=== PATIENT | male | born 1975 | race Caucasian/White ===

== ENCOUNTER 2016-12-19 13:47 | Emergency (ER) | payer SELFPAY ==
[~2016-12-19] VITALS: Ht 170.2 cm; Wt 63.5 kg
[~2016-12-19 13:47] MED LIST: ALPR2TAB2 PO; LOSA50TA6 PO; OXYC-250 PO; PREG50CA PO
[2016-12-19 14:03] VITALS: BP 169/99
--- NOTE | 2016-12-19 14:32 | PHYS DOC ---
Past Medical History Past Medical History: Anxiety, Hypertension, Other Additional Past Medical Histor: crohns, chronic left leg pain Past Surgical History: Other Additional Past Surgical Histo: testicular tortion Alcohol Use: Occasionally Drug Use: None Adult General Chief Complaint Chief Complaint: LOWER EXT PAIN [facility] HPI Patient is a 41 year old male who presents complaining of left hip deformity for a couple years patient states a couple years ago he fell down from standing position. He states he was seen in the ED they did x-rays and they told him he could have some nerve damage. He states he followed up with an orthopedic doctor who told him everything was okay. He states he was seen at [facility] one week ago, he states they did MRI of his hip and he was told everything is okay. Patient states he believes his hip is deformed despite his negative MRI. Patient states we should find what's wrong with his hip because is it deformed and "locked up". I offered patient x-rays, patient states he has already had a MRI right which is negative. He is up walking demonstrating his hip deformity which is not visible in the ED. Patient has repeatedly story over over about his hip deformity which is not visible. He is using his hip when he is walking and striking everything with no difficulty. Patient's also complaining of a rash in the inner thigh. He states his had the rash for couple days. Denies any drainage urgency frequency or dysuria. Review of Systems Review of Systems Constitutional: Denies fever or chills [] Eyes: Denies change in visual acuity, redness, or eye pain [] HENT: Denies nasal congestion or sore throat [] Respiratory: Denies cough or shortness of breath [] Cardiovascular: No additional information not addressed in HPI [] GI: Denies abdominal pain, nausea, vomiting, bloody stools or diarrhea [] : Denies dysuria or hematuria [] Musculoskeletal: Left hip deformity Integument: Denies rash or skin lesions [] Neurologic: Denies headache, focal weakness or sensory changes [] Endocrine: Denies polyuria or polydipsia [] Allergies Allergies Allergies Coded Allergies Type Severity Reaction Last Updated Verified No Known Drug Allergies 12/03/15 No Physical Exam Physical Exam Constitutional: Well developed, well nourished, no acute distress, non-toxic appearance. [] HENT: Normocephalic, atraumatic, bilateral external ears normal, oropharynx moist, no oral exudates, nose normal. [] Eyes: PERRLA, EOMI, conjunctiva normal, no discharge. [] Neck: Normal range of motion, no tenderness, supple, no stridor. [] Cardiovascular:Heart rate regular rhythm, no murmur [] Lungs & Thorax: Bilateral breath sounds clear to auscultation [] Abdomen: Bowel sounds normal, soft, no tenderness, no masses, no pulsatile masses. [] Skin: Left inner thigh with small amount of jock itch rash Back: No tenderness, no CVA tenderness. [] Extremities: Left hip with no obvious deformity. Full range of motion to the left hip. Adequate internal rotation and external rotation of the left hip. +2 left pedal pulse. Cap refill less than 2 seconds left lower extremity. Neurologic: Alert and oriented X 3, normal motor function, normal sensory function, no focal deficits noted. [] Psychologic: Affect normal, judgement normal, mood normal. [] Current Patient Data Vital Signs Vital Signs Date Time Temp Pulse Resp B/P (MAP) Pulse Ox O2 Delivery O2 Flow Rate FiO2 12/19/16 14:03 98.9 104 18 169/99 (122) 99 Room Air 98.9 EKG EKG [] Radiology/Procedures Radiology/Procedures [] Course & Med Decision Making Course & Med Decision Making Pertinent Labs and Imaging studies reviewed. (See chart for details) Patient is in the ED with complaining of chronic left hip deformity which is not present on physical exam. Patient has been an incredible amount of time to straighten to the nose and I what he believes his left hip deformity. He states he is already had x-rays done of the left hip as well as the right done at [facility] couple days ago which were negative. I recommended he follows up with Dr. Oreilly orthopedic doctor who is information services consultant this week. Patient states he is already seen Dr. Oreilly and he was told his hip is in place and there is nothing that can be done. I recommended he picks anybody from the list of orthopedic doctors or he can follow up with another orthopedic doctor if he prefers 2. Patient has spent an incredible amount of time with the nurse and I trying to explain to us his chronic left hip deformity which is not visible on physical exam. Orthopedic f/u recommended He also had a jock itch rash on the left scrotal area. He was discharged with clotrimazole cream. Dragon Disclaimer Dragon Disclaimer This electronic medical record was generated, in whole or in part, using a voice recognition dictation system. Departure Departure Impression: Primary Impression: Jock itch Additional Impression: Left thigh pain Disposition: HOME, SELF-CARE Condition: STABLE Referrals: CRIS GASTELUM MD (PCP) COLEMAN OREILLY MD Call Dr. Oreilly and set up a follow up appointment as soon as possible Patient Instructions: Hip Pain, Jock Itch, [id number] Additional Instructions: You were seen for concerns about to your heat in the lower extremities. He stated you have had imaging done. We recommend you follow-up with the provided orthopedic doctor or your own orthopedic doctor as soon as possible. Call their office today or Thursday and get a follow-up appointment. Scripts Clotrimazole (CLOTRIMAZOLE) 15 Gm Cream..g. 1 CHAIM TP TID, #45 GM Prov: AMITA HOFFMAN APRN 12/19/16 Problem Qualifiers AMITA HOFFMAN APRN December 19, 2016 14:32
[2016-12-19] MEDS ORDERED: CLOT15CR4 TP (14:37)
== END 2016-12-19 14:49 | disposition home or self-care (01) ==
LOC: ER 13:47
DX: M79.652 Pain in left thigh (principal); B35.6 Tinea cruris; F41.9 Anxiety disorder, unspecified; I10 Essential (primary) hypertension; K50.90 Crohn's disease, unspecified, without complications; G89.29 Other chronic pain
CPT/HCPCS: 99283

== ENCOUNTER 2016-12-20 12:34 | Inpatient (IN) | payer SELFPAY ==
[~2016-12-20] VITALS: Ht 172.7 cm; Wt 63.5 kg
[~2016-12-20 12:34] MED LIST changes: +CLOT15CR4 TP
[2016-12-20] MEDS ORDERED: IV NORMAL SALINE 1000ML BAG 1,000 ML IV SCH (13:15)
--- NOTE | 2016-12-20 13:15 | PHYS DOC ---
Past Medical History Past Medical History: Anxiety, Hypertension, Other Additional Past Medical Histor: crohns, chronic left leg pain Past Surgical History: Other Additional Past Surgical Histo: testicular tortion Alcohol Use: Occasionally Drug Use: None Adult General Chief Complaint Chief Complaint: LOWER EXT PAIN HPI HPI Patient is a 41 year old male who presents with complaint of bilateral hip pain. Patient states that he has been having trouble over the past year with hip pain after suffering an injury approximately one year ago. Patient states that he fell, causing nerve damage in his left extremity. Patient has been trying to rehabilitation his injury over the past year. Patient states while doing back hamstring kicks 2 weeks ago he felt a pop in both his proximal lower extremity and hip and states since then has been having difficulty with ambulation and has been unsteady on his feet. Patient rates his pain currently is 10 out of 10. Patient states that he is having difficulty performing tasks of daily living at home because of his current affliction. Patient follows a Dr. Gastelum for primary care. Patient denies any other associated symptoms. Review of Systems Review of Systems Constitutional: Denies fever or chills [] Eyes: Denies change in visual acuity, redness, or eye pain [] HENT: Denies nasal congestion or sore throat [] Respiratory: Denies cough or shortness of breath [] Cardiovascular: Denies chest pain or edema [] GI: Denies abdominal pain, nausea, vomiting, bloody stools or diarrhea [] : Denies dysuria or hematuria [] Musculoskeletal: Bilateral hip pain, difficulty with ambulation [] Integument: Denies rash or skin lesions [] Neurologic: Denies headache, focal weakness or sensory changes [] Current Medications Current Medications Current Medications Medications (Trade) Dose Ordered Sig/Dnenys Start Time Stop Time Status Last Admin Dose Admin Diazepam (Valium) 5 mg 1X ONCE 12/20/16 13:15 12/20/16 13:16 DC 12/20/16 14:02 5 MG Sodium Chloride 1,000 ml @ 1,000 mls/hr Q1H 12/20/16 13:15 12/20/16 14:14 DC 12/20/16 14:02 1,000 MLS/HR Allergies Allergies Allergies Coded Allergies Type Severity Reaction Last Updated Verified No Known Drug Allergies 12/03/15 No Physical Exam Physical Exam Constitutional: Alert, afebrile, appears in moderate discomfort. [] HENT: Normocephalic, atraumatic, bilateral external ears normal, oropharynx moist, no oral exudates, nose normal. [] Eyes: PERRLA, EOMI, conjunctiva normal, no discharge. [] Neck: Normal range of motion, no tenderness, supple, no stridor. [] Cardiovascular: Tachycardia, regular rhythm, no murmur [] Lungs & Thorax: Bilateral breath sounds clear to auscultation [] Abdomen: Bowel sounds normal, soft, no tenderness, no masses, no pulsatile masses. [] Skin: Warm, dry, no erythema, no rash. [] Back: No tenderness, no CVA tenderness. [] Extremities: No obvious deformities, proximal lower extremity muscle spasms bilaterally, mildly decreased range of motion to flexion at the hips bilaterally , mild greater trochanteric tenderness bilaterally, pulses 2+ distal to affected areas. [] Neurologic: Alert and oriented X 3, normal motor function, normal sensory function, no focal deficits noted. [] Current Patient Data Vital Signs Vital Signs Date Time Temp Pulse Resp B/P (MAP) Pulse Ox O2 Delivery O2 Flow Rate FiO2 12/20/16 13:30 88 10 138/83 (101) 96 12/20/16 12:45 98.8 Room Air 98.8 Lab Values Laboratory Tests Test 12/20/16 13:35 White Blood Count 14.9 x10^3/uL (4.0-11.0) H Red Blood Count 4.64 x10^6/uL (4.30-5.70) Hemoglobin 15.6 g/dL (13.0-17.5) Hematocrit 45.6 % (39.0-53.0) Mean Corpuscular Volume 98 fL (79-100) Mean Corpuscular Hemoglobin 34 pg (25-35) Mean Corpuscular Hemoglobin Concent 34 g/dL (31-37) Red Cell Distribution Width 13.3 % (11.5-14.5) Platelet Count 358 x10^3/uL (140-400) Neutrophils (%) (Auto) 71 % (31-73) Lymphocytes (%) (Auto) 19 % (24-48) L Monocytes (%) (Auto) 7 % (0-9) Eosinophils (%) (Auto) 3 % (0-3) Basophils (%) (Auto) 1 % (0-3) Neutrophils # (Auto) 10.5 x10^3uL (1.8-7.7) H Lymphocytes # (Auto) 2.8 x10^3/uL (1.0-4.8) Monocytes # (Auto) 1.1 x10^3/uL (0.0-1.1) Eosinophils # (Auto) 0.4 x10^3/uL (0.0-0.7) Basophils # (Auto) 0.1 x10^3/uL (0.0-0.2) Sodium Level 136 mmol/L (136-145) Potassium Level 4.1 mmol/L (3.5-5.1) Chloride Level 100 mmol/L (98-107) Carbon Dioxide Level 30 mmol/L (21-32) Anion Gap 6 (6-14) Blood Urea Nitrogen 17 mg/dL (8-26) Creatinine 1.0 mg/dL (0.7-1.3) Estimated GFR (Cockcroft-Gault) 82.8 BUN/Creatinine Ratio 17 (6-20) Glucose Level 133 mg/dL (70-99) H Calcium Level 9.0 mg/dL (8.5-10.1) Magnesium Level 1.9 mg/dL (1.8-2.4) Total Bilirubin 0.2 mg/dL (0.2-1.0) Aspartate Amino Transferase (AST) 30 U/L (15-37) Alanine Aminotransferase (ALT) 35 U/L (16-63) Alkaline Phosphatase 69 U/L (46-116) Total Protein 7.8 g/dL (6.4-8.2) Albumin 4.0 g/dL (3.4-5.0) Albumin/Globulin Ratio 1.1 (1.0-1.7) Laboratory Tests 12/20/16 13:35 Laboratory Tests 12/20/16 13:35 EKG EKG Not performed Radiology/Procedures Radiology/Procedures [facility] [address] [facility] [place], [place] [id number] IMAGING REPORT Signed PATIENT: INESSA SUTTON ACCOUNT: [id number] : 1975 LOCATION: ER AGE: 41 SEX: M EXAM STATUS: REG ER ORD. PHYSICIAN: RADHA MARROQUIN MD REASON: bilateral hip pain PROCEDURE: HIP BILATERAL WITH PELVIS Indication bilateral hip pain. An AP view of the pelvis was obtained as well as targeted AP and frog leg views of both hips. No bony abnormality is seen DICTATED and SIGNED BY: ERYN WATERMAN MD DATE: 12/20/16 1209 CC: RADHA MARROQUIN MD; CRIS GASTELUM MD ~ [] Course & Med Decision Making Course & Med Decision Making Pertinent Labs and Imaging studies reviewed. (See chart for details) Patient was given IV Valium in the emergency department as a muscle relaxant medication. Patient experienced mild improvement in symptoms but continues to voice concern of difficulty with ambulation and movement of his lower extremities. Due to reported functional impairment, I contacted Dr. Lopez. She stated that she had been in contact with the patient prior to his emergency department stay. She confirmed that the patient has had multiple visits prior and has not had a formal diagnosis for his ailments. She agreed to admit the patient to the hospital for further monitoring and treatment. The patient will be admitted under Dr. Lopez in consults will be placed to Dr. Vidales and Dr. Oreilly to follow with patient in hospital. Dragon Disclaimer Dragon Disclaimer This electronic medical record was generated, in whole or in part, using a voice recognition dictation system. Departure Departure Impression: Primary Impression: Left hip pain Additional Impression: Unable to ambulate Disposition: ADMITTED INPATIENT Admitting Physician: Mayte Lopez Condition: STABLE Referrals: CRIS GASTELUM MD (PCP) Problem Qualifiers RADHA MARROQUIN MD December 20, 2016 13:15
[2016-12-20 13:51] LABS: BASO # 0.1 x10^3/uL (0.0-0.2); BASO % 1 % (0-3); EOS % 3 % (0-3); HEMATOCRIT 45.6 % (39.0-53.0); HEMOGLOBIN 15.6 g/dL (13.0-17.5); LYMPH # 2.8 x10^3/uL (1.0-4.8); LYMPH % 19 % (24-48); MEAN CORPUSCULAR HEMOGLOBIN 34 pg (25-35); MEAN CORPUSCULAR HGB CONC 34 g/dL (31-37); MEAN CORPUSCULAR VOLUME 98 fL (79-100); MONO % 7 % (0-9); NEUT % 71 % (31-73); PLATELET COUNT 358 x10^3/uL (140-400); RED BLOOD COUNT 4.64 x10^6/uL (4.30-5.70); RED CELL DISTRIBUTION WIDTH 13.3 % (11.5-14.5); WHITE BLOOD COUNT 14.9 x10^3/uL (4.0-11.0)
[2016-12-20 13:54] LABS: GFR 82.8; POTASSIUM 4.1 mmol/L (3.5-5.1)
[2016-12-20 13:59] LABS: ALBUMIN/GLOBULIN RATIO 1.1 (1.0-1.7); MAGNESIUM 1.9 mg/dL (1.8-2.4); TOTAL BILIRUBIN 0.2 mg/dL (0.2-1.0); TOTAL PROTEIN 7.8 g/dL (6.4-8.2)
--- NOTE | 2016-12-20 14:12 | RAD ---
Indication bilateral hip pain. An AP view of the pelvis was obtained as well as targeted AP and frog leg views of both hips. No bony abnormality is seen
[2016-12-20] MEDS: IV NORMAL SALINE 1000ML BAG 1,000 ML IV SCH (15:56)
[2016-12-20 16:00] VITALS: BP 134/92
[2016-12-20] MEDS ORDERED: ACETAMINOPHEN 325 MG TABLET. PO PRN (16:00)
[2016-12-20] MEDS ORDERED: ONDANSETRON PF 4 MG/2 ML VIAL. IV PRN (16:00)
[2016-12-20] MEDS: fentaNYL PF VIAL 100 MCG/2 ML VIAL IV PRN ×2 (16:13→22:50)
[2016-12-20 19:00] VITALS: BP 127/86
[2016-12-20 23:16] VITALS: BP 128/67
[2016-12-21] MEDS: IV NORMAL SALINE 1000ML BAG 1,000 ML IV SCH (01:56)
[2016-12-21 03:25] VITALS: BP 107/66
--- NOTE | 2016-12-21 05:45 | ACF ---
Admission Forms Criteria MUSCULOSKELETAL DISEASE GRG Clinical Indications for Admission to Inpatient Care (Place 'X' for any and all applicable criteria): Hospital admission is needed for appropriate care of the patient because of 1 or more of the following: [X]I. Fracture, dislocation, or other musculoskeletal injury requiring inpatient care(medical) as indicated by 1 or more of the following(4)(5)(6)(7) [ ]a) Vertebral fracture requiring observation for instability or neurologic compromise (8) [ ]b) Compartment syndrome (proven or cannot be ruled out during observation level of care) (9) [ ]c) Limb-threatening injury [ ]d) Major injury requiring inpatient stabilization such as traction initiation or external fixation before internal fixation or closure of complex or open fracture [ ]e) Major injury requiring inpatient treatment after emergency or observation level care (as appropriate) [X]f) Severe pain requiring acute inpatient management [ ]g) Injury with suspicion of abuse or neglect (eg., child, dependent elderly) [ ]II. Newly diagnosed or suspected bone, joint, or orthopedic device infection (e.g., osteomyelitis, septic arthritis) needing 1 or more of the following(1)(2)(3) [ ]a) IV antibiotics that cannot be initiated in other than inpatient setting (e.g., patient too unstable or home infusion not available) [ ]b) Device removal or replacement [ ]c) Bone or soft tissue debridement [ ]d) Joint drainage (drain placement or repetitive aspirations) [ ]III. Severe rheumatologic disease (e.g., systemic lupus erythematosus, rheumatoid arthritis) with complications or comorbidities (Also use Optimal Recovery Care Criteria or General Recovery Criteria as appropriate on the basis of predominant condition), including 1 or more of the following( 10)(11)(12)(13) [ ]a) Severe infection (e.g., HOUSEHOLD PERSONAL ASSISTANT infection, sepsis) (14) [ ]b) Respiratory complications, including 1 or more of the following : [ ]i) Pleural effusion with respiratory compromise [ ]ii) Pulmonary hypertension with congestive failure [ ]iii) Respiratory failure [ ]iv) Pulmonary hemorrhage (15) [ ]c) Hematologic disease, including 1 or more of the following: [ ]i) Coagulopathy with bleeding [ ]ii) Thrombosis with hypercoagulable state [ ]iii) Thrombotic thrombocytopenic purpura [ ]d) Cerebritis with seizures, psychosis, or other severe abnormalities [ ]e) Vertebral destruction with monitoring needed for cervical myelopathy& possible respiratory compromise [ ]f) Exacerbation that requires inpatient treatment (e.g., intravenous immunosuppression) (16) [ ]g) Acute renal failure [ ]h) Cerebritis with seizures, psychosis, Altered mental status, or other neurologic abnormalities [ ]i) Pericardial effusion with tamponade [ ]j) Vertebral destruction, with monitoring needed for cervical myelopathy and possible respiratory compromise [ ]IV. Severe vasculitis with complications or comorbidities (Also use Optimal Recovery Care Criteria General Recovery Criteria as appropriate on the basis of predominant condition), including 1 or more of the following(11)(12)(17)(18)(19)(20) [ ]a) Exacerbation that requires inpatient treatment (e.g., intravenous immunosuppression) (19)(21) [ ]b) Pulmonary hemorrhage (15) [ ]c) HOUSEHOLD PERSONAL ASSISTANT vasculitis with seizures, psychosis, Altered mental status that is severe or persistent, or other severe abnormalities (22) [ ]d) Cerebral infarction [ ]e) Gastrointestinal ischemia [ ]f) Gangrene or threatened amputation [ ]g) Renal failure (16) [ ]h) Other significant complications of vasculitis ( eg., tissue or organ ischemia, organ dysfunction ) [ ]V. Severe myopathy as indicated by 1 or more of the following (28)(29) [ ]a) New onset of airway compromise or inability to swallow [ ]b) Respiratory deterioration with observation needed for impending respiratory failure [ ]c) Exacerbation that requires inpatient treatment (e.g., intravenous immunosuppression) [ ]. Severe crystal gout (arthropathy) indicated by 1 or more of the following (23)(24) [ ]a) Severe pain requiring acute inpatient management [ ]b) Exacerbation that requires inpatient treatment (e.g., intravenous treatment) [ ]VII.Rhabdomyolysis and 1 or more of the following (25)(26)(27) [ ]a) Acute renal failure [ ]b) Need for intravenous hydration after emergency or observation level care (as appropriate) [ ]c) Inability to maintain oral hydration [ ]d) Change in mental status [ ]e) Electrolyte abnormality that remains after emergency or observation level care (as appropriate) [ ]VIII Post amputation complication, as indicated by ANY ONE of the following [ ]a) Infection [ ]b) Dehiscence [ ]c) Myodesis failure [ ]IX. Severe pain requiring acute inpatient management due to musculoskeletal condition [ ]X. Musculoskeletal Disease and ALL of the following: [ ]a) Symptom or finding for which emergency and observation care have failed or are not considered appropriate (Use General Criteria: Observation Care as appropriate) [ ]b) Presence of ANY ONE of the following [ ]i) A General Admission Criteria [ ]ii) A Pediatric General Admission Criteria The original [facility] [employer] content created by [facility] [employer] has been revised. The portions of the content which have been revised are identified through the use of italic text or in bold, and [facility] has neither reviewed nor approved the modified material. All other unmodified content is copyright [facility]. Please see references footnoted in the original [facility] edition 2016 Admission Criteria Met?: Yes JOELLEN BOJORQUEZ December 21, 2016 05:45
[2016-12-21 06:11] LABS: BASO # 0.1 x10^3/uL (0.0-0.2); BASO % 2 % (0-3); EOS % 7 % (0-3); HEMATOCRIT 45.6 % (39.0-53.0); HEMOGLOBIN 15.1 g/dL (13.0-17.5); LYMPH # 4.3 x10^3/uL (1.0-4.8); LYMPH % 46 % (24-48); MEAN CORPUSCULAR HEMOGLOBIN 33 pg (25-35); MEAN CORPUSCULAR HGB CONC 33 g/dL (31-37); MEAN CORPUSCULAR VOLUME 101 fL (79-100); MONO % 11 % (0-9); NEUT % 35 % (31-73); PLATELET COUNT 313 x10^3/uL (140-400); RED BLOOD COUNT 4.54 x10^6/uL (4.30-5.70); RED CELL DISTRIBUTION WIDTH 13.4 % (11.5-14.5); WHITE BLOOD COUNT 9.5 x10^3/uL (4.0-11.0)
[2016-12-21 06:24] LABS: CALCIUM 8.8 mg/dL (8.5-10.1); CREATININE 0.9 mg/dL (0.7-1.3); GFR 93.5; POTASSIUM 4.5 mmol/L (3.5-5.1)
[2016-12-21 07:00] VITALS: BP 140/95
[2016-12-21] MEDS: fentaNYL PF VIAL 100 MCG/2 ML VIAL IV PRN (10:45)
[2016-12-21 10:51] VITALS: BP 133/79
--- NOTE | 2016-12-21 12:10 | PDOC ---
OBJECTIVE Vital Signs Vital Signs Date Time Temp Pulse Resp B/P (MAP) Pulse Ox O2 Delivery O2 Flow Rate FiO2 12/21/16 10:51 97.9 75 20 133/79 (97) 97 Room Air 97.9 12/21/16 10:45 18 Room Air 12/21/16 07:50 Room Air 12/21/16 07:00 97.7 71 20 140/95 (110) 95 Room Air 97.7 12/21/16 03:25 97.8 49 18 107/66 (80) 99 Room Air 97.8 12/20/16 23:20 20 97 Room Air 12/20/16 23:16 97.7 70 18 128/67 (87) 97 Room Air 97.7 12/20/16 20:00 Room Air 12/20/16 19:00 97.7 67 18 127/86 (100) 98 Room Air 97.7 12/20/16 18:00 Room Air 12/20/16 16:13 16 Room Air 12/20/16 16:00 98.2 73 20 134/92 (106) 97 Room Air 98.2 12/20/16 16:00 98.2 73 20 134/92 (106) 97 Room Air 98.2 12/20/16 15:30 66 10 122/77 (92) 96 12/20/16 14:30 70 11 124/81 (95) 97 12/20/16 13:30 88 10 138/83 (101) 96 12/20/16 12:45 98.8 114 21 162/97 (118) 97 Room Air 98.8 I & O Intake and Output 12/21/16 07:00 Intake Total 0 ml Output Total 600 ml Balance -600 ml Intake Oral 0 ml Output Urine Total 600 ml ASSESSMENT/PLAN Assessment/Plan [id number] H&P dictated Problems: COMMENT Lab Laboratory Tests Test 12/20/16 13:35 12/21/16 05:45 White Blood Count 14.9 x10^3/uL (4.0-11.0) 9.5 x10^3/uL (4.0-11.0) Red Blood Count 4.64 x10^6/uL (4.30-5.70) 4.54 x10^6/uL (4.30-5.70) Hemoglobin 15.6 g/dL (13.0-17.5) 15.1 g/dL (13.0-17.5) Hematocrit 45.6 % (39.0-53.0) 45.6 % (39.0-53.0) Mean Corpuscular Volume 98 fL (79-100) 101 fL (79-100) Mean Corpuscular Hemoglobin 34 pg (25-35) 33 pg (25-35) Mean Corpuscular Hemoglobin Concent 34 g/dL (31-37) 33 g/dL (31-37) Red Cell Distribution Width 13.3 % (11.5-14.5) 13.4 % (11.5-14.5) Platelet Count 358 x10^3/uL (140-400) 313 x10^3/uL (140-400) Neutrophils (%) (Auto) 71 % (31-73) 35 % (31-73) Lymphocytes (%) (Auto) 19 % (24-48) 46 % (24-48) Monocytes (%) (Auto) 7 % (0-9) 11 % (0-9) Eosinophils (%) (Auto) 3 % (0-3) 7 % (0-3) Basophils (%) (Auto) 1 % (0-3) 2 % (0-3) Neutrophils # (Auto) 10.5 x10^3uL (1.8-7.7) 3.3 x10^3uL (1.8-7.7) Lymphocytes # (Auto) 2.8 x10^3/uL (1.0-4.8) 4.3 x10^3/uL (1.0-4.8) Monocytes # (Auto) 1.1 x10^3/uL (0.0-1.1) 1.0 x10^3/uL (0.0-1.1) Eosinophils # (Auto) 0.4 x10^3/uL (0.0-0.7) 0.7 x10^3/uL (0.0-0.7) Basophils # (Auto) 0.1 x10^3/uL (0.0-0.2) 0.1 x10^3/uL (0.0-0.2) Sodium Level 136 mmol/L (136-145) 138 mmol/L (136-145) Potassium Level 4.1 mmol/L (3.5-5.1) 4.5 mmol/L (3.5-5.1) Chloride Level 100 mmol/L (98-107) 103 mmol/L (98-107) Carbon Dioxide Level 30 mmol/L (21-32) 31 mmol/L (21-32) Anion Gap 6 (6-14) 4 (6-14) Blood Urea Nitrogen 17 mg/dL (8-26) 15 mg/dL (8-26) Creatinine 1.0 mg/dL (0.7-1.3) 0.9 mg/dL (0.7-1.3) Estimated GFR (Cockcroft-Gault) 82.8 93.5 BUN/Creatinine Ratio 17 (6-20) Glucose Level 133 mg/dL (70-99) 94 mg/dL (70-99) Calcium Level 9.0 mg/dL (8.5-10.1) 8.8 mg/dL (8.5-10.1) Magnesium Level 1.9 mg/dL (1.8-2.4) Total Bilirubin 0.2 mg/dL (0.2-1.0) Aspartate Amino Transf (AST/SGOT) 30 U/L (15-37) Alanine Aminotransferase (ALT/SGPT) 35 U/L (16-63) Alkaline Phosphatase 69 U/L (46-116) Total Protein 7.8 g/dL (6.4-8.2) Albumin 4.0 g/dL (3.4-5.0) Albumin/Globulin Ratio 1.1 (1.0-1.7) DELVIS SALEH MD December 21, 2016 12:10
--- NOTE | 2016-12-21 13:32 | HP ---
ADMIT DATE: 12/20/2016 LOCATION: Room 440. HISTORY OF PRESENT ILLNESS: The patient is a 41-year-old gentleman who presented to the Emergency Room complaining of pain, discomfort, and feeling of loss of control over bilateral hips. He had problem with a left hip trauma a year ago with diagnosis, at that time, of left lumbosacral plexopathy. He was advised to do physical therapy and he has been doing that over the last year. He stated that he has improved and almost felt back to normal until about a week ago he was exercising and doing back hamstring kicks, he had a big cramp and felt a pop in both his proximal lower extremity and hip. Since then, he has been having difficulty ambulating. He feels that he is losing control on both his lower extremities and feels that his femoral heads are not connected to his hips. He is having difficulty supporting himself and standing without using a cane. He does have very unusual symptom and presentation, and he is very dramatic about what he is feeling. He does seem to be very anxious and had sweaty palms when he was describing this. He also complains of pain. He states that over the last 2 weeks, since he had this injury, he has sought medical attention at several facilities including [facility] where he had MRI of the hip, which was reported to be negative, results of which is not available to me at this time. He also was seen in the Emergency Room earlier at [place] and was sent home. He is insisting that he is not able to walk and has severe weakness in his lower extremities and feel that he will be paralyzed. He was admitted for further evaluation and treatment and consultation with Neurology, Physical Therapy as well as Orthopedic. PAST MEDICAL HISTORY: Significant for hypertension, history of testicular torsion, history of back pain, anxiety, depression, open reduction internal fixation of the right leg and injury to his right leg with a forklift running over his right leg, injury last year in December 2015, causing left hip plexopathy. REVIEW OF SYSTEMS: CONSTITUTIONAL: Denies fever or chills. EYES: Denies visual changes. HEENT: Denies nasal congestion or sore throat. RESPIRATORY: Denies cough. CARDIOVASCULAR: Denies chest pain. GASTROINTESTINAL: Denies nausea, vomiting, or abdominal pain. GENITOURINARY: Denies dysuria. MUSCULOSKELETAL: Bilateral hip pain, difficulty with ambulation as mentioned above. PHYSICAL EXAMINATION: GENERAL: He is alert. He is a very anxious appearing. He is very dramatic about describing what is going on with him. He is very sweaty in his palms. HEENT: Normocephalic, atraumatic. Eyes: Pupils equal, round, reactive to light and accommodation. NECK: Supple, with no JVD or bruit or cervical adenopathy. HEART: Mildly tachycardic, did not appreciate a murmur. LUNGS: Fairly clear to auscultation. ABDOMEN: Soft, nontender, no organomegaly, no masses, no bruits, no ascites. SKIN: Warm and dry, but he does have sweaty palms. He did not have rash. BACK: With no CVA tenderness. EXTREMITIES: No edema, clubbing, or cyanosis, but he does have spasm in his muscles, mildly decreased range of motion and flexion in the hips bilaterally. He does have mild prominence on his muscles in the left lower extremity. He does have +2 distal pulses. NEUROLOGIC: Alert and oriented. He does move all his extremities. He does have equal strength in the upper extremities 5/5, in the lower extremities 4/5, but does appear to have difficulty controlling his lower extremities distending. He did have some clicking in his right hip. Deep tendon reflexes were present and his Babinski was negative. IMPRESSION: 1. Weakness in the lower extremity and history of left femoral plexopathy in the past, worsening and currently bilateral. 2. Anxiety disorder. DELVIS SALEH MD DR: JUANIS/lisa JOB#: [id number] / [id number]
[2016-12-21 14:44] VITALS: BP 135/92
--- NOTE | 2016-12-21 15:37 | PDOC2 ---
NEUROLOGY CONSULT Date of Admission Date of Admission DATE: 12/21/16 TIME: 15:30 Reason for Consult Reason for Consult: Left hip pain Referring Physician Referring Physician: Dr. Lopez Source Source: Chart review, Patient History of Present Illness History of Present Illness The patient is a 41-year-old right-handed male with chronic pain ever since a misadventure in November of last year. He was on large doses of Xanax for anxiety and fell asleep on the toilet with his left leg bent behind him. He presented to our hospital where an MRI of the pelvis showed swelling in several muscles including iliopsoas. MRI of the brain and lumbar spine were essentially negative. I did an outpatient EMG on 01/01/16 showing left femoral neuropathy but no other plexopathy or radiculopathy. There was an incidental left anterior tarsal tunnel syndrome. I have followed him intermittently since then including last month. He has been seeing several other practitioners including a visit to the emergency department earlier this week. I discussed the case with the on- call on 12/15, who told me the patient had negative MRI of the lumbar spine and pelvis. Indeed I have reviewed these records here in our chart, and the studies are indeed normal. The patient came in because he complains that the left pelvis seems to lock up on him. It is very difficult for him to describe to me the symptoms but he thinks that the muscles are walking up and spreading over to the other side. Past Medical History Cardiovascular: HTN Psych: Anxiety Musculoskeletal: low back pain Renal/: Other (testicular torsion) Past Surgical History Past Surgical History: Other (right leg ORIF after trauma) Family History Family History: No pertinent hx Social History Social History Single, no alcohol or tobacco Current Medications Current Medications Current Medications Sodium Chloride 1,000 ml @ 1,000 mls/hr Q1H IV Last administered on 12/20/16 14:02; Start 12/20/16 at 13:15; Stop 12/20/16 at 14:14; Status DC Diazepam (Valium) 5 mg 1X ONCE IV Last administered on 12/20/16 14:02; Start 12/20/16 at 13:15; Stop 12/20/16 at 13:16; Status DC Ondansetron HCl (Zofran) 4 mg PRN Q8HRS PRN IV NAUSEA/VOMITING Last administered on 12/20/16 22:50; Start 12/20/16 at 16:00; Stop 12/21/16 at 15:59 Fentanyl Citrate (Fentanyl 2ml Vial) 50 mcg PRN Q2HR PRN IV PAIN Last administered on 12/21/16 10:45; Start 12/20/16 at 16:00; Stop 12/21/16 at 15:59 Sodium Chloride 1,000 ml @ 100 mls/hr Q10H IV Last administered on 12/21/16 01 :56; Start 12/20/16 at 15:56; Stop 12/21/16 at 15:55 Acetaminophen (Tylenol) 650 mg PRN Q4HRS PRN PO FEVER; Start 12/20/16 at 16:00; Stop 12/21/16 at 15:59 Active Scripts Active Reported Percocet 10-325 Mg Tablet (Oxycodone/Acetaminophen) 1 Each Tablet 1 Tab PO Q4- 6HRS Allergies Allergies: Coded Allergies: No Known Drug Allergies (Unverified , 12/03/15) ROS Review of System Patient denies fevers, chills, weight loss, dyspnea, angina, abdominal pain, change in bowels, or dysuria. 14 point review of systems is negative. Physical Exam Physical Examination PHYSICAL EXAMINATION: Vital signs: see above. General appearance is normal and in no acute distress. HEENT: Normocephalic and nontraumatic. Eyes, nose, ears, and throat are unremarkable. Neck is supple. No lymphadenopathy. No bruits are heard over the carotid artery. No crepitus. NEUROLOGICAL EXAMINATION: Mental Status Examination: Alert. Oriented to time, place, and person. Answers questions and follows commends. Pupils are equal round and reactive to light and accommodation. Extraocular movements are intact. Visual field exam shows no defect on the direct confrontation. No motor or sensory deficits on the facial exam. Uvula in the midline and the soft palate elevated symmetrically. No deviation of the tongue to any direction. Gross hearing is normal. Shoulder shrug normal. Muscle tone is normal. Muscle strength is 5. Deep tendon reflexes are 2+ all around. Plantar reflex is with flexion response bilaterally. [id number] test performance is accurate. Tandem walk test is accurate, but he stumbles a little bit when I point out how well he is walking tandem. Alternative movements are accurate. Romberg test is negative. Gait is normal. Sensory exam shows no deficits. No cerebellar signs are elicited. Vitals VITALS Vital Signs Date Time Temp Pulse Resp B/P (MAP) Pulse Ox O2 Delivery O2 Flow Rate FiO2 12/21/16 14:44 98.7 65 20 135/92 (106) 99 Room Air 98.7 Labs Labs Laboratory Tests Test 12/20/16 13:35 12/21/16 05:45 White Blood Count 14.9 x10^3/uL (4.0-11.0) 9.5 x10^3/uL (4.0-11.0) Red Blood Count 4.64 x10^6/uL (4.30-5.70) 4.54 x10^6/uL (4.30-5.70) Hemoglobin 15.6 g/dL (13.0-17.5) 15.1 g/dL (13.0-17.5) Hematocrit 45.6 % (39.0-53.0) 45.6 % (39.0-53.0) Mean Corpuscular Volume 98 fL (79-100) 101 fL (79-100) Mean Corpuscular Hemoglobin 34 pg (25-35) 33 pg (25-35) Mean Corpuscular Hemoglobin Concent 34 g/dL (31-37) 33 g/dL (31-37) Red Cell Distribution Width 13.3 % (11.5-14.5) 13.4 % (11.5-14.5) Platelet Count 358 x10^3/uL (140-400) 313 x10^3/uL (140-400) Neutrophils (%) (Auto) 71 % (31-73) 35 % (31-73) Lymphocytes (%) (Auto) 19 % (24-48) 46 % (24-48) Monocytes (%) (Auto) 7 % (0-9) 11 % (0-9) Eosinophils (%) (Auto) 3 % (0-3) 7 % (0-3) Basophils (%) (Auto) 1 % (0-3) 2 % (0-3) Neutrophils # (Auto) 10.5 x10^3uL (1.8-7.7) 3.3 x10^3uL (1.8-7.7) Lymphocytes # (Auto) 2.8 x10^3/uL (1.0-4.8) 4.3 x10^3/uL (1.0-4.8) Monocytes # (Auto) 1.1 x10^3/uL (0.0-1.1) 1.0 x10^3/uL (0.0-1.1) Eosinophils # (Auto) 0.4 x10^3/uL (0.0-0.7) 0.7 x10^3/uL (0.0-0.7) Basophils # (Auto) 0.1 x10^3/uL (0.0-0.2) 0.1 x10^3/uL (0.0-0.2) Sodium Level 136 mmol/L (136-145) 138 mmol/L (136-145) Potassium Level 4.1 mmol/L (3.5-5.1) 4.5 mmol/L (3.5-5.1) Chloride Level 100 mmol/L (98-107) 103 mmol/L (98-107) Carbon Dioxide Level 30 mmol/L (21-32) 31 mmol/L (21-32) Anion Gap 6 (6-14) 4 (6-14) Blood Urea Nitrogen 17 mg/dL (8-26) 15 mg/dL (8-26) Creatinine 1.0 mg/dL (0.7-1.3) 0.9 mg/dL (0.7-1.3) Estimated GFR (Cockcroft-Gault) 82.8 93.5 BUN/Creatinine Ratio 17 (6-20) Glucose Level 133 mg/dL (70-99) 94 mg/dL (70-99) Calcium Level 9.0 mg/dL (8.5-10.1) 8.8 mg/dL (8.5-10.1) Magnesium Level 1.9 mg/dL (1.8-2.4) Total Bilirubin 0.2 mg/dL (0.2-1.0) Aspartate Amino Transf (AST/SGOT) 30 U/L (15-37) Alanine Aminotransferase (ALT/SGPT) 35 U/L (16-63) Alkaline Phosphatase 69 U/L (46-116) Total Protein 7.8 g/dL (6.4-8.2) Albumin 4.0 g/dL (3.4-5.0) Albumin/Globulin Ratio 1.1 (1.0-1.7) Laboratory Tests Test 12/21/16 05:45 White Blood Count 9.5 x10^3/uL (4.0-11.0) Red Blood Count 4.54 x10^6/uL (4.30-5.70) Hemoglobin 15.1 g/dL (13.0-17.5) Hematocrit 45.6 % (39.0-53.0) Mean Corpuscular Volume 101 fL (79-100) Mean Corpuscular Hemoglobin 33 pg (25-35) Mean Corpuscular Hemoglobin Concent 33 g/dL (31-37) Red Cell Distribution Width 13.4 % (11.5-14.5) Platelet Count 313 x10^3/uL (140-400) Neutrophils (%) (Auto) 35 % (31-73) Lymphocytes (%) (Auto) 46 % (24-48) Monocytes (%) (Auto) 11 % (0-9) Eosinophils (%) (Auto) 7 % (0-3) Basophils (%) (Auto) 2 % (0-3) Neutrophils # (Auto) 3.3 x10^3uL (1.8-7.7) Lymphocytes # (Auto) 4.3 x10^3/uL (1.0-4.8) Monocytes # (Auto) 1.0 x10^3/uL (0.0-1.1) Eosinophils # (Auto) 0.7 x10^3/uL (0.0-0.7) Basophils # (Auto) 0.1 x10^3/uL (0.0-0.2) Sodium Level 138 mmol/L (136-145) Potassium Level 4.5 mmol/L (3.5-5.1) Chloride Level 103 mmol/L (98-107) Carbon Dioxide Level 31 mmol/L (21-32) Anion Gap 4 (6-14) Blood Urea Nitrogen 15 mg/dL (8-26) Creatinine 0.9 mg/dL (0.7-1.3) Estimated GFR (Cockcroft-Gault) 93.5 Glucose Level 94 mg/dL (70-99) Calcium Level 8.8 mg/dL (8.5-10.1) Images Images I reviewed the [facility] MRI studies which as only stated were negative Assessment/Plan Assessment/Plan Impression: High suspicion for factitious disorder with Dr. price, seeking medications for pain including narcotics, with workup in the past essentially negative. Recommendations: I do not think repeating the EMG studies would be helpful. Clinical exam is not consistent with ongoing femoral neuropathy or lumbosacral plexopathy. I have continually told him that he would benefit from formal physical therapy. He does not have insurance and has been trying to do this through a friend. Physical therapy has been ordered as has physical medicine and rehabilitation consult No need to repeat the MRI studies and I see no need for any further imaging studies or tests. Current medications. Note that he has tried and failed on a variety of nonnarcotic medication such as tizanidine, antidepressants, and gabapentin. Aim for discharge tomorrow. Thank you for letting me help with the patient's care. EVIE VORA MD December 21, 2016 15:37
[2016-12-21] MEDS ORDERED: TIZA4CAP PO (16:50)
--- NOTE | 2016-12-22 06:04 | CONS ---
DATE OF CONSULTATION: REQUESTING PHYSICIAN: Dr. Mayte Lopez. REASON FOR CONSULTATION: Left hip pain. 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 He states that he remembers me evaluating him as an inpatient after that episode and recommended neurological evaluation as he seemed to have mainly nerve issues going on and has subsequently followed with Dr. Neal. He states that he felt like he was getting stronger, but had a more recent episode where he was doing some hamstring exercises, kicking his leg out and his leg seemed to turn inward and basically give out to where it was not holding him. He also had some recent episodes where he was having increased symptoms after those exercise-induced problems with his left leg and also had some episodes where his hands were going numb periodically and he had several visits to the Emergency Department and they apparently did some workup on him, but on one of the episodes gave him a shot of Haldol and told him [facility]. He is concerned at this time that he has severe weakness and limitations in his leg. It is not working like it should and he certainly used to being very active. He sees some muscular differences in the way his muscles work with more muscular development over the lateral aspect of the hip extensors, proximal femur area and indicates that he is very tight in that area. He is still weak, although he is able to feel the area better and put some weight on it. Periodically, it does seem to give way on him, it feels very tight and he has to walk like a peg-leg very often. He states that the last EMG test that he had with Dr. Neal is about [address] Neal has been following him along, but indicated that he would probably have resolution of the nerve damage, that he had sustained some stretch of the femoral nerve apparently and that may resolve at about a year. He says that he has been very anxious because since it has been over a year, Dr. Neal told him "I really don't know what to tell you, that it should be getting better, but it isn't" and he was concerned that he should maybe have other referrals to see if anything can be done for him since his hip and knee seem to be giving out on him. His current issues are primarily that he has pain and a tight feeling down the entire medial aspect of his leg from the groin area all the way down to the ankle and somewhat even involving the lateral aspect of the hip and low back where he feels very tight as well. He says that when he does more activity and works out, again he feels weak and unstable, feels like the knee is going to blow up or blow out on him and again is very concerned with some of the recent episodes that have happened, whether he is just going to have worsening problems, maybe even end up in a wheelchair, even beyond the limitations that he has now. 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 He has lost about 30 pounds over this intervening time frame and again is very discouraged compared to his previous high level of fitness and activity. On his initial admission, he said his pain was very severe. He had rated at 10/10, currently is much better with pain medications and indicates that he is able to move his leg better, put more weight and overall get around a bit better. PAST MEDICAL HISTORY: Significant for Crohn's disease, this pain from his left leg injury, hypertension and anxiety. PAST SURGICAL HISTORY: Significant for surgery on a testicular torsion. ALLERGIES: He has no known drug allergies. MEDICATIONS: List is reviewed. FAMILY HISTORY: No significant family history. SOCIAL HISTORY: Denies any smoking or drug use. Occasional social drinker of alcohol. Has kids at home and again would like to play with them and remain active. He has currently been off work about a year due to the resolving injury described above. REVIEW OF SYSTEMS: He denies any real recent traumatic injury. No chest pain, shortness of breath, fever, chills, visual changes. No current neck pain. He had had a, long ago, neck injury treated chiropractically when he was doing gymnastics, which resolved really completely. He has not done any chiropractic for the back or hip issues at present. Denies any skin lesions or rash. The focal weakness episodes, both in the upper extremities involving the arms and hands were brought on seemingly when the leg injury occurred and his symptoms were very severe and he was having significant probably radiating nerve pain in the leg based on how he describes that. He describes that as if his body is shutting down. He has not had that happened as recently. Denies any change in bowel or bladder function, abdominal pain, nausea, vomiting, any respiratory limitations, shortness of breath, cough, congestion, sore throat. PHYSICAL EXAMINATION: GENERAL: This is a 41-year-old male, alert and oriented, pleasant, cooperative, 140 pounds, height 68 inches, BMI 21.3. He is somewhat anxious, but a very good historian and very detail oriented in terms of his symptoms. EXTREMITIES: On examination of the upper extremities, he has good range of motion, alignment, stability of bilateral shoulders, elbows and wrists. On examination of the lower extremities, he has tight hamstrings bilaterally. Leg lengths are equal. He does have some difference in his musculature that again is more prominent lateral to the rectus over the proximal hip girdle area. Groin musculature is a bit more flaccid on the left side than the right. He is able to do a straight leg raise, but with significant low back discomfort. No instability of the hip or real tenderness in the groin area itself of the hip aside from the groin musculature with any extremes of range of motion and no instability or click elicited. He has normal examination of the contralateral right hip as well as bilateral knees. There are no effusions. His ligamentous examination is intact throughout to Renetta testing, anterior/posterior drawer, varus/valgus stress. No lateral rotatory instability whatsoever, no effusion. He does have some slight patellofemoral crepitus bilaterally, no joint line tenderness. Negative Stan's. He has good motion and stability of bilateral ankles. NEUROLOGIC: He has absent knee jerk on the left side where he has normal knee jerk on the right. Ankle jerks are soft, symmetric bilaterally. IMAGING STUDIES: Include AP x-ray of the pelvis, which showed well-maintained joint spaces. No evidence of any fracture or instability or other bony abnormality. IMPRESSION: Previous remote 1 year ago injury where he sustained some nerve damage to the left lower extremity, mildly resolving. TREATMENT PLAN: I had a long discussion with him today, at least half an hour probably about the findings on examination. I told him there are really 2 reasons for feeling unstable or that his leg is giving way. One would be that it is actually structurally unsound that his ligaments are injured or giving out that is certainly not the case as his hip and knee exam is really structurally intact. I think where he is having difficulty is the denervation of some of the muscles and the compensatory action of some of the other muscles are resulting in some of the tightness that he is having and has ongoing weakness in the area of the femoral nerve and there is also absent knee jerk reflex on the left side compared to the right, which is further evidence of an ongoing injury. I told him the other reason that he can be giving out is that his muscles either fatigue or lack the strength to hold him up after a certain period of time and that certainly is consistent with the nerve damage and the compensatory issues observed today. I told him I am unable to explain the going numb in his arms other than if he had severe pain in a physiologic reaction to that could certainly ____ some mechanisms have some reaction as described, which is certainly possible as it seemed to resolve in a period of several hours. I overall recommended that he have a followup appointment with Dr. Neal perhaps for a repeat EMG to see what resolution there may be in terms of his ongoing injury and also what the specifics of where he has ongoing deficit in terms of location and severity. I doubt that there would be really much intervention desirable or possible surgically, certainly not in my hands whatsoever, but it is possible if there is isolated severe dense nervous deficit, it may be considered to have an evaluation with a peripheral learning technologies specialist to consider if or whether some type of intervention may be appropriate such as in certain cases, a decompression of a nerve versus some type of transfer procedure, but again based on his current function, I really do not see that happening. I think some more information though would be helpful in terms of his recovery and ongoing deficits. I did explain the physiology of regenerating nerves as well and told him that certainly they can take a long time, the overall benchmark is about an inch a month, but that it may never come back fully and that given any lack of other neurologic disease, the usual progression of these would be that it continues to improve over a time period and then plateaus off eventually to where it is at a steady state position and any other gains would have to be really with ongoing compensation and strengthening elsewhere. He has certainly appreciated the discussion. He had all his questions answered to the best of my ability today. He was very appreciative. He would like to probably be discharged and then follow up with Dr. Neal on an outpatient basis, I think, which is probably more reasonable, especially if EMG is contemplated. I do not think I really have much more to offer from an orthopedic standpoint other than the above discussion. COLEMAN MARSHALL MD DR: RONNIE/lisa JOB#: [id number] / [id number] EVIE Daniels MD, HALLA MD
== END 2016-12-21 17:00 | disposition home or self-care (01) | DRG 880 ==
LOC: ER 12:34 → 4 NORTH 14:11
PROVIDERS: ADMIT Internal Medicine; ATTEND Internal Medicine
DX: F44.9 Dissociative and conversion disorder, unspecified (principal); K50.90 Crohn's disease, unspecified, without complications; N44.00 Torsion of testis, unspecified; F41.9 Anxiety disorder, unspecified; G57.50 Tarsal tunnel syndrome, unspecified lower limb; G62.9 Polyneuropathy, unspecified; G89.29 Other chronic pain; I10 Essential (primary) hypertension; F32.9 Major depressive disorder, single episode, unspecified; M25.551 Pain in right hip; M54.5 Low back pain; R26.2 Difficulty in walking, not elsewhere classified; R53.1 Weakness; R26.9 Unspecified abnormalities of gait and mobility
CPT/HCPCS: 36415; 73521; 80048; 80053; 83735; 85027; 96361; 96374; J2405; J3010; J3360; J7030; 99285-25

== ENCOUNTER 2016-12-27 22:27 | Emergency (ER) | payer SELFPAY ==
[~2016-12-27] VITALS: Ht 170.2 cm; Wt 59.0 kg
[~2016-12-27 22:27] MED LIST changes: +TIZA4CAP PO
[2016-12-27 23:08] VITALS: BP 155/96
--- NOTE | 2016-12-27 23:33 | PHYS DOC ---
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 He reports progressive weakness mainly in his thighs. He's been seen by multiple specialists including our orthopedic surgeon, neurologists, and primary care doctor who are currently working on a diagnosis. He is a family history of ALS. He denies chest pain shortness of breath nausea vomiting. Otherwise he denies any recent injuries. Onset one year. Location lower extremities. Duration intermittent. Nonradiating. Review of systems is negative for adverse chills cough vision changes. All other review of systems is negative unless otherwise noted in history of present illness. Review of Systems Review of Systems SEE ABOVE. Allergies Allergies Allergies Coded Allergies Type Severity Reaction Last Updated Verified No Known Drug Allergies 12/03/15 No Physical Exam Physical Exam Constitutional: Well developed, well nourished, no acute distress, non-toxic appearance. [] HENT: Normocephalic, atraumatic, bilateral external ears normal, oropharynx moist, no oral exudates, nose normal. Eyes: PERRLA, EOMI, conjunctiva normal, no discharge. [] Neck: Normal range of motion, no tenderness, supple, no stridor. Cardiovascular:Heart rate regular rhythm, no murmur [] Lungs & Thorax: Bilateral breath sounds clear to auscultation Abdomen: Bowel sounds normal, soft, no tenderness, no masses, no pulsatile masses. [] Skin: Warm, dry, no erythema, no rash. Back: No tenderness, no CVA tenderness. [] Extremities: The patient's lower extremity shows muscle wasting. Deep tendon reflexes 2+ in the knees. Palpable pulse distally with 2 second cap refill distally. He has 4 out of 5 strength in lower extremities. Nontender with range of motion. Neurologic: Alert and oriented X 3, normal motor function, normal sensory function, no focal deficits noted. [] Psychologic: Affect normal, judgement normal, mood normal. Current Patient Data Vital Signs Vital Signs Date Time Temp Pulse Resp B/P (MAP) Pulse Ox O2 Delivery O2 Flow Rate FiO2 5/13/17 23:08 98.4 82 16 95 Room Air 98.4 EKG EKG [] Radiology/Procedures Radiology/Procedures [] Course & Med Decision Making Course & Med Decision Making Pertinent Labs and Imaging studies reviewed. (See chart for details) [] 41-year-old gentleman presenting to the emergency Department with chronic worsening weakness in his lower extremities with sensory changes. Vital signs afebrile with normal heart rate. Pertinent physical exam findings showed muscle wasting of the quadriceps and hamstrings and gastrocnemius complex. The patient reports having had an MRI of his pelvis and hips and multiple x-rays. He denies desiring any pain medications today. He is just trying to find out what's causing his symptoms. I recommended the patient be referred to a tertiary academic center. At this point I do not believe the patient has an emergency medical condition and will be safe to be referred in an outpatient setting to the [facility] neurology team for further evaluation workup and care. I provided the number for him and the patient was subsequent discharged home. . They were to return if their symptoms worsened or if they were concerned for any reason. [id number] discharge instructions and return precautions were given. Patient's questions were answered to their satisfaction. Patient is comfortable plan. Dragon Disclaimer Dragon Disclaimer This electronic medical record was generated, in whole or in part, using a voice recognition dictation system. Departure Departure Impression: Primary Impression: Weakness Additional Impression: Muscle wasting Disposition: 01 HOME, SELF-CARE Condition: STABLE Referrals: CRIS GASTELUM MD (PCP) Patient Instructions: Weakness Additional Instructions: Thank you for allowing us to participate in your care today. Followup with neurology in the next 4-5 days. contact info provided below. If you do not have a primary care provider you can ask for a list of our primary care providers. Return to the emergency department you have any new or concerning findings. neurology: [id number] [place] [address] This should be evaluated by the primary care physician and any necessary consulting services for continued management within a few days after discharge. Return to emergency room if you have any new or concerning symptoms including but not limited to fever, chills, nausea, vomiting, intractable pain, any new rashes, chest pain, shortness of air, uncontrolled bleeding, difficulty breathing, and/or vision loss. Problem Qualifiers JERMAINE SHER MD December 27, 2016 23:33
== END 2016-12-27 23:47 | disposition home or self-care (01) ==
LOC: ER 22:27
DX: R53.1 Weakness (principal); M62.50 Muscle wasting and atrophy, not elsewhere classified, unspecified site; I10 Essential (primary) hypertension; F41.9 Anxiety disorder, unspecified; G89.29 Other chronic pain
CPT/HCPCS: 99281